=== PATIENT | female | born 1990 | race African-American/Black ===

== ENCOUNTER 2017-10-02 05:28 | Inpatient (IN) | payer OTHER ==
[2017-09-27 15:04] VITALS: BMI 34.3
[2017-10-02] MEDS ORDERED: ROPIVACAINE HCL 0.5% 30ML VIAL ONE (08:46)
[2017-10-02] MEDS ORDERED: DEXAMETHASONE SOD PHOSPHATE/PF 10 MG/ML SDV ONE (08:46)
[2017-10-02] MEDS ORDERED: MIDAZOLAM HCL 2 MG/2 ML SINGLE DOSE VIAL ONE ×3 (08:47→10:20)
[2017-10-02] MEDS ORDERED: VASOPRESSIN 20 UNITS/ML VIAL IV ONE (09:36)
--- NOTE | 2017-10-02 09:44 | HP ---
History & Physical Update - History History: Change (see notes) Currently as noted:: Patient reports latex allergy - Physical Physical: No Change - Assessment Assessment: No Change - Plan Plan: No Change
[2017-10-02] MEDS ORDERED: PROPOFOL 20 ML ONE (10:27)
[2017-10-02] MEDS ORDERED: ROCURONIUM BROMIDE 50 MG/5 ML VIAL ONE ×2 (10:27)
[2017-10-02] MEDS ORDERED: CLINDAMYCIN PHOSPHATE 600 MG/4 ML VIAL IVPB ONE (10:28)
[2017-10-02] MEDS ORDERED: KETOROLAC TROMETHAMINE 30 MG/1 ML VIAL ONE (10:40)
[2017-10-02] MEDS ORDERED: LIDOCAINE HCL/PF 2% SDV 5ML VIAL ONE (10:40)
[2017-10-02] MEDS ORDERED: CLINDAMYCIN PHOSPHATE 600 MG/4 ML VIAL ONE (10:40)
[2017-10-02] MEDS ORDERED: DEXAMETHASONE SOD PHOSPHATE 4 MG/1 ML VIAL ONE (10:40)
[2017-10-02] MEDS ORDERED: BUPIVACAINE HCL/PF 0.5% (5MG/ML) 10 ML VIAL ONE (11:36)
[2017-10-02] MEDS ORDERED: GLYCOPYRROLATE 0.2 MG/1 ML VIAL ONE (11:44)
[2017-10-02] MEDS ORDERED: NEOSTIGMINE METHYLSULFATE 0.5 MG/ML - 10 ML MDV ONE (11:44)
[2017-10-02] MEDS ORDERED: BUPIVACAINE HCL/PF (5 MG/ML) 30 ML VIAL IJ ONE (11:55)
[2017-10-02] MEDS ORDERED: BENZOIN/ALOE VERA/STORAX/TOLU 58 ML BOTTLE ONE (11:56)
--- NOTE | 2017-10-02 12:12 | OP ---
Operative Note - Note: Operative Date: 10/02/17 Pre-Operative Diagnosis: uterine fibroid Operation: myomectomy via pfannensteil incision Findings: large 16 cm pedunculated fibroid, normal tubes and ovaries bilaterally Post-Operative Diagnosis: Same as Pre-op Surgeon: Kaci Torres Glass Washer: Rbuen Salguero Anesthesiologist/STONE LAYER: Meche Brooks MD Anesthesia: General Specimens Removed: fibroid Estimated Blood Loss (mls): 150 Drains, Volume Out (mls): 300 (clear urine) Fluid Volume Replaced (mls): 2,000 Operative Report Dictated: Yes
[2017-10-02] MEDS ORDERED: DEXAMETHASONE SOD PHOSPHATE 4 MG/1 ML VIAL IVPUSH ONE ×2 (12:24→15:30)
[2017-10-02] MEDS ORDERED: IBUPROFEN 600 MG TABLET (FP) PO SCH ×2 (12:30→15:32)
[2017-10-02] MEDS: HYDROmorphone *PCA* 10MG/50ML DISP.SYRIN PCA SCH ×2 (12:45→15:46)
[2017-10-02] MEDS: LACTATED RINGERS SOLUTION 1,000 ML IV SCH ×2 (12:45→17:27)
[2017-10-02] MEDS ORDERED: PROMETHAZINE HCL 25 MG/1 ML VIAL IVPB PRN (15:19)
[2017-10-02] MEDS ORDERED: ONDANSETRON 4 MG/2 ML VIAL IVPUSH PRN ×2 (15:21)
[2017-10-02] MEDS ORDERED: HYDROmorphone *PCA* 10MG/50ML DISP.SYRIN PCA SCH (15:31)
--- NOTE | 2017-10-02 19:39 | OP ---
DATE OF OPERATION: 10/02/2017 ATTENDING PHYSICIAN RESPONSIBLE FOR SIGNING REPORT: Kaci Torres MD PREOPERATIVE DIAGNOSES: Uterine fibroid, pelvic pain. POSTOPERATIVE DIAGNOSES: Uterine fibroid, pelvic pain. SURGERY: Myomectomy via Pfannenstiel incision. FINDINGS: A large 16-cm pedunculated fibroid. Normal tubes and ovaries bilaterally. SURGEON: Kaci Torres MD ASSIST: Ruben Salguero MD ANESTHESIOLOGIST: Meche Brooks MD ANESTHESIA: General. SPECIMENS REMOVED: Large fibroid. ESTIMATED BLOOD LOSS: 150. URINE OUTPUT: 300. FLUIDS GIVEN: 2000. INDICATION: Patient is a 27-year-old, 0, with a history of pelvic pain , who presented with a large pedunculated fibroid. She does desire surgical removal. She was counseled regarding risks, benefits, alternatives, and complications of procedure including infection; bleeding; damage to surrounding organs such as bowel, bladder; conversion to a hysterectomy. She expressed understanding. DESCRIPTION OF PROCEDURE: She was brought to the operating room. When anesthesia was found to be adequate, patient was prepped and draped in normal sterile fashion, placed in dorsal supine position. An approximately 10-cm skin incision was made with a knife and carried down to the layer of rectus fascia using the Bovie electrocautery. The fascia was nicked in midline, extended laterally using carved Shabazz scissors. Inferior portion of the fascial incision was tented up using Louisa clamps and dissected off the underlying rectus muscle using the Shabazz scissors. Attention was brought to the superior portion where, in a similar fashion, it was tented up using Louisa clamps, dissected off the underlying rectus muscle. The rectus muscles were in midline bluntly, and the peritoneum was entered sharply. Examination of the abdominal cavity revealed thin adhesions from the uterus to the fibroid and a large pedunculated fibroid extended to sacrum. The uterus and fibroid were then exteriorized, and it was noted that the fibroid was pedunculated. The approximately 3-cm stalk was double clamped using Liz clamps, and it was amputated. The stump was ligated using multiple 0 Vicryl sutures to achieve good hemostasis. A second imbricating layer was performed using 3-0 Biosyn. Copious irrigation was performed. Good hemostasis was noted. Interceed was placed over the incision. The peritoneum was then reapproximated using 2-0 Biosyn in running fashion. The fascia was closed using 0 Vicryl in a running fashion. The subcutaneous fat was closed using 0 Vicryl in a running fashion. The skin was reapproximated using 2-0 Vicryl. 20 mL of Marcaine was given subcutaneously after skin closure. The patient tolerated the procedure well, was awakened from anesthesia, brought to recovery room in stable condition. Gerardo [id number] MTDD
[2017-10-03] MEDS: IBUPROFEN 800 MG/8 ML IJ IVPB SCH ×3 (00:03→11:43)
[2017-10-03] MEDS: LACTATED RINGERS SOLUTION 1,000 ML IV SCH (00:07)
[2017-10-03 08:53] LABS: HEMOGLOBIN 9.3 GM/dL (10.7-15.3); MCH 27.5 pg (25.7-33.7); MCHC 33.3 g/dl (32.0-36.0); MEAN CELL VOLUME 82.4 fl (80-96); MEAN PLT VOLUME 6.2 fl (7.5-11.1); PLATELET COUNT 444 K/MM3 (134-434); RDW 16.2 % (11.6-15.6); WHITE BLOOD COUNT 14.9 K/mm3 (4.0-10.0)
[2017-10-03] MEDS ORDERED: HYDROCORTISONE 1% TOPICAL OINT 30 GM TUBE TP PRN (09:03)
[2017-10-03] MEDS: ENOXAPARIN NA (PORCINE) 40 MG/0.4 ML DISP.SYRIN SQ SCH (09:42)
[2017-10-03] MEDS: QUEtiapine FUMARATE 50 MG TABLET PO SCH (09:44)
[2017-10-03] MEDS ORDERED: valACYclovir HCL 500 MG TABLET (FP) PO ONE (10:30)
[2017-10-03] MEDS ORDERED: PCA PUMP KEY 1 EACH EACH ONE (13:25)
[2017-10-03] MEDS: oxyCODONE HCL 5 MG TABLET PO PRN ×2 (15:28→19:42)
[2017-10-03] MEDS ORDERED: IBUPROFEN 600 MG TABLET (FP) PO PRN (15:31)
[2017-10-03] MEDS: IBUPROFEN 600 MG TABLET (FP) PO PRN ×2 (15:42→19:41)
--- NOTE | 2017-10-03 16:29 | PN ---
Progress Note (SOAP) - Subjective History of Present Illness: Patient without complaints Tolerating sips of clears + Nausea with HELIUM ARC WELDER Adequate pain control with HELIUM ARC WELDER s/p jones removal, voiding No flatus No fevers, chills, chest pain, shortness of breath - Current Medications Current Medications: Active Medications Acetaminophen (Tylenol -) 650 mg PO Q4H PRN PRN Reason: PAIN 1-3 Enoxaparin Sodium (Lovenox -) 40 mg SQ DAILY [facility] Last Admin: 10/03/17 09:42 Dose: 40 mg Fentanyl (Sublimaze Injection -) 50 mcg IVPUSH [id number] PRN PRN Reason: PAIN-PACU ORDER X 4 DOSES ONLY Last Admin: 10/02/17 12:30 Dose: 50 mcg Hydrocortisone (Hytone 1% Ointment -) 1 applic TP QID PRN PRN Reason: FOR ITCHING Last Admin: 10/03/17 11:42 Dose: 1 tube Hydromorphone HCl (Dilaudid Quality Project Manager -) 0 mg HELIUM ARC WELDER HELIUM ARC WELDER [facility] PRN Reason: Protocol Stop: 10/09/17 12:24 Last Admin: 10/02/17 15:46 Dose: Not Given Lactated Ringer's (Lactated Ringers Solution) 1,000 mls @ 125 mls/hr IV ASDIR [facility] Last Admin: 10/03/17 00:07 Dose: 125 mls/hr Ibuprofen (Motrin -) 600 mg PO Q4H PRN PRN Reason: PAIN 4-6 Last Admin: 10/03/17 15:42 Dose: 600 mg Ondansetron HCl (Zofran Injection) 4 mg IVPUSH Q4H PRN PRN Reason: NAUSEA AND/OR VOMITING Last Admin: 10/02/17 19:58 Dose: 4 mg Oxycodone HCl (Roxicodone -) 10 mg PO Q4H PRN PRN Reason: PAIN 7-10 Last Admin: 10/03/17 15:28 Dose: 10 mg Promethazine HCl (Phenergan Injection -) 12.5 mg IVPB Q6H PRN PRN Reason: NAUSEA AND/OR VOMITING Quetiapine Fumarate (Seroquel -) 50 mg PO DAILY [facility] Last Admin: 10/03/17 09:44 Dose: 50 mg Quetiapine Fumarate (Seroquel -) 150 mg PO HS TANJA - Objective Vital Signs: Vital Signs Temperature 98.0 F 10/03/17 08:31 Pulse Rate 61 10/03/17 08:31 Respiratory Rate 20 10/03/17 08:31 Blood Pressure 131/75 10/03/17 08:31 O2 Sat by Pulse Oximetry (%) 100 10/02/17 21:00 Constitutional: Yes: Well Nourished, No Distress, Calm Cardiovascular: Yes: Regular Rate and Rhythm Respiratory: Yes: Regular, CTA Bilaterally Gastrointestinal: Yes: Normal Bowel Sounds, Soft Genitourinary: No: Vaginal Bleeding Extremities: Yes: WNL Edema: No Wound/Incision: Yes: Well Approximated, Sutures Intact, Steri Strips, Dressing Removed ...Motor Strength: Yes: WNL Psychiatric: Yes: Alert, Oriented Labs Lab Results: CBC, BMP 10/03/17 08:00 Assessment/Plan 27 yo POD # 1 s/p myomectomy via laparotomy 1. 1. Continue routine postoperative care. 2. ID - afebrile, will continue to monitor vital signs. 3. Cardiovascular - No acute issues 4. Pulmonary - Encourage incentive spirometer 5. Hematology - Hemoglobin / Hematocrit stable. Will continue to monitor vital signs of anemia Plan to start lovenox for thromboprophylaxis today 6. Urinary urine output adequate overnight Jones DCd in AM, voiding 7. Gastroinestinal no signs of ileus at this time Will advance diet 8. Gynecology will follow up pathology 9. Anticipate discharge home POD # 2, pending able to ambulate, adequate pain control and urinating without issue.
[2017-10-03] MEDS: ACETAMINOPHEN 325 MG TABLET (FP) PO PRN ×2 (16:45→22:15)
[2017-10-03] MEDS ORDERED: QUEtiapine FUMARATE 50 MG TABLET PO SCH (22:00)
[2017-10-03] MEDS ORDERED: BISACODYL 10 MG SUPP.RECT RC PRN (22:20)
[2017-10-04] MEDS: SIMETHICONE 80 MG TAB.CHEW (FP) PO PRN ×2 (00:16→08:03)
[2017-10-04] MEDS: IBUPROFEN 600 MG TABLET (FP) PO PRN ×2 (00:16→08:03)
[2017-10-04] MEDS: oxyCODONE HCL 5 MG TABLET PO PRN ×2 (00:18→08:04)
--- NOTE | 2017-10-04 08:33 | PATH ---
Surgical Pathology Report Patient Name: DONALDO ALONSO [facility]. Rec. #: [id number] /Age/Gender: 1990 (Age: 27) / F Account: [id number] Location: [facility] OBS/GENOMICS SCIENTIST Taken: 10/02/2017 Received: 10/02/2017 Reported: 10/04/2017 Physicians: Kaci Torres Specimen(s) Received FIBROID Clinical History Fibroid uterus Final Diagnosis FIBROID, EXCISION: LEIOMYOMA WITH DEGENERATIVE CHANGE. Electronically Signed Diana Gonzalez M.D. Gross Description Received in formalin labeled "fibroid," is a 747 g, 15.5 x 9.7 x 9.0 cm rubbery mass, consistent with a fibroid. Sectioning reveals brown-pink, rubbery parenchyma with foci of degeneration. Portfolio Assistant sections are submitted in 8 cassettes. DL/10/02/2017 saudi/10/02/2017
[2017-10-04] MEDS: QUEtiapine FUMARATE 50 MG TABLET PO SCH (09:30)
[2017-10-04] MEDS: ENOXAPARIN NA (PORCINE) 40 MG/0.4 ML DISP.SYRIN SQ SCH (09:53)
[2017-10-04] MEDS ORDERED: PNEUMOCOCCAL 23 VACCINE 0.5 ML VIAL IM ONE (10:00)
[2017-10-04] MEDS ORDERED: PNEUMOC 13-VAL CONJ-DIP CRM/PF 0.5 ML DISP.SYRIN IM ONE (10:00)
--- NOTE | 2017-10-04 10:30 | PN ---
Progress Note (SOAP) - Subjective History of Present Illness: Patient without complaints Tolerating regular diet without nausea or vomiting No fevers, chills, chest pain, shortness of breath Voiding, passing gas Moderate pain control No vaginal bleeding - Current Medications Current Medications: Active Medications Acetaminophen (Tylenol -) 650 mg PO Q4H PRN PRN Reason: PAIN 1-3 Last Admin: 10/03/17 22:15 Dose: 650 mg Bisacodyl (Dulcolax Suppository -) 10 mg RC DAILY PRN PRN Reason: CONSTIPATION Enoxaparin Sodium (Lovenox -) 40 mg SQ DAILY [facility] Last Admin: 10/04/17 09:53 Dose: 40 mg Hydrocortisone (Hytone 1% Ointment -) 1 applic TP QID PRN PRN Reason: FOR ITCHING Last Admin: 10/03/17 11:42 Dose: 1 tube Ibuprofen (Motrin -) 600 mg PO Q4H PRN PRN Reason: PAIN 4-6 Last Admin: 10/04/17 08:03 Dose: 600 mg Ondansetron HCl (Zofran Injection) 4 mg IVPUSH Q4H PRN PRN Reason: NAUSEA AND/OR VOMITING Last Admin: 10/02/17 19:58 Dose: 4 mg Oxycodone HCl (Roxicodone -) 10 mg PO Q4H PRN PRN Reason: PAIN 7-10 Last Admin: 10/04/17 08:04 Dose: 10 mg Promethazine HCl (Phenergan Injection -) 12.5 mg IVPB Q6H PRN PRN Reason: NAUSEA AND/OR VOMITING Quetiapine Fumarate (Seroquel -) 50 mg PO DAILY [facility] Last Admin: 10/04/17 09:30 Dose: 50 mg Quetiapine Fumarate (Seroquel -) 150 mg PO [facility] Last Admin: 10/03/17 21:19 Dose: 150 mg Simethicone (Mylicon -) 80 mg PO Q4H PRN PRN Reason: GAS PAIN Last Admin: 10/04/17 08:03 Dose: 80 mg - Objective Vital Signs: Vital Signs Temperature 98.7 F 10/03/17 20:00 Pulse Rate 68 10/03/17 20:00 Respiratory Rate 18 10/03/17 20:00 Blood Pressure 118/64 10/03/17 20:00 O2 Sat by Pulse Oximetry (%) 100 10/02/17 21:00 Constitutional: Yes: Well Nourished, No Distress, Calm Cardiovascular: Yes: Regular Rate and Rhythm Respiratory: Yes: Regular, CTA Bilaterally Gastrointestinal: Yes: Normal Bowel Sounds, Soft Genitourinary: No: Vaginal Bleeding Extremities: Yes: WNL Edema: No Wound/Incision: Yes: Clean/Dry, Well Approximated, Steri Strips Psychiatric: Yes: Alert, Oriented Labs Lab Results: CBC, BMP 10/03/17 08:00 Assessment/Plan 27 yo POD # 1 s/p myomectomy via laparotomy, afebrile, vital signs stable, voiding, passing gas, tolerating oral intake and adequate pain control 1. Patient fulfilled all criteria for discharge home POD # 2 2. Encouraged to follow up in our office in 1 week for incision check; to [facility] (Has appointment on ) 3. Patient to call if any fevers, chills, large amount of incisional drainage or bleeding, foul smelling incisional drainage, severe pain
[2017-10-04 11:00] VITALS: BP 106/53; PULSE 81; TEMP 98.3
--- NOTE | 2017-10-04 15:18 | PN ---
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 pain well controlled, ammunition assembly laborer discontinued yesterday. No anesthesia complications.
== END 2017-10-04 13:15 | disposition home or self-care (01) | DRG 519 ==
LOC: JSAMEDAYSX 05:28 → EDSTATUS 09:00 → J3W 14:15
PROVIDERS: ADMIT Obstetrics & Gynecology; ATTEND Obstetrics & Gynecology
PROC: 0UB90ZZ Excision of Uterus, Open Approach (ICD-10-PCS; principal; 2017-10-02 09:00)
DX: D25.9 Leiomyoma of uterus, unspecified (principal); Z91.040 Latex allergy status
CPT/HCPCS: 36415; 84703; 85027; 86850; 86900; 86901; 88305-TC; 94760

== ENCOUNTER 2020-09-14 15:28 | Emergency (ER) | payer OTHER ==
[2020-09-14 15:55] VITALS: BP 117/65; PULSE 75; TEMP 98.8; BMI 37.8
[2020-09-14] MEDS ORDERED: ALBUTEROL SO4 2.5/IPRATROPIUM 0.5 INH SOL 3 ML VIAL.NEB. NEB ONE ×2 (16:39→16:56)
[2020-09-14] MEDS ORDERED: predniSONE 20 MG TABLET (UD) PO ONE (16:39)
[2020-09-14] MEDS ORDERED: predniSONE 20 MG TABLET (UD) ONE (16:56)
== END 2020-09-14 17:20 | disposition home or self-care (01) ==
LOC: FER 15:28
PROC: 3E0F7GC Introduction of Other Therapeutic Substance into Respiratory Tract, Via Natural or Artificial Opening (ICD-10-PCS; principal; 2020-09-14)
DX: R06.02 Shortness of breath (principal)
CPT/HCPCS: 84703; 93005; 99283-25